=== PATIENT | male | born 1980 | race Caucasian/White ===

== ENCOUNTER 2018-09-09 19:01 | Emergency (ER) | payer MEDICAID ==
[~2018-09-09] VITALS: Ht 185.4 cm; Wt 103.0 kg
[~2018-09-09 19:01] MED LIST: LIDO20SO16 PO; METH4TAB3 PO; NAPR-56 PO; PENI250T2 PO
[2018-09-09] MEDS ORDERED: dexamethasone sod phosphate 10mg/ml inj IM STA (20:09)
[2018-09-09] MEDS ORDERED: HYDROcodone/acetaminophen 10/325mg tab PO ONE (20:10)
[2018-09-09] MEDS ORDERED: LIDOcaine Viscous 15ml cup MM PRN (20:10)
[2018-09-09] MEDS ORDERED: HYDR-4383 PO (20:11)
--- NOTE | 2018-09-09 20:11 | NUR ---
airway patent sore appearing and reddened throat
[2018-09-09] MEDS ORDERED: CefTRIAXone 1000mg IM Kit (w/lidocaine diluent) IM ONE (20:20)
[2018-09-09 20:33] VITALS: BP 135/69
== END 2018-09-09 20:37 | disposition home or self-care (01) ==
LOC: ER 19:01
DX: J02.0 Streptococcal pharyngitis (principal); J35.1 Hypertrophy of tonsils; Z79.899 Other long term (current) drug therapy
CPT/HCPCS: 96372; 99283; J0696; J1100

== ENCOUNTER 2020-04-03 10:51 | Emergency (ER) | payer MEDICAID ==
[~2020-04-03] VITALS: Ht 185.4 cm; Wt 90.9 kg
[~2020-04-03 10:51] MED LIST changes: +HYDR-4383 PO; -NAPR-56 PO; -PENI250T2 PO
[2020-04-03 12:27] VITALS: BP 132/92
[2020-04-03] MEDS ORDERED: PENI500T2 PO (12:40)
== END 2020-04-03 12:47 | disposition home or self-care (01) ==
LOC: ER 10:52
DX: K04.7 Periapical abscess without sinus (principal); F17.200 Nicotine dependence, unspecified, uncomplicated; Z79.2 Long term (current) use of antibiotics; Z79.899 Other long term (current) drug therapy
CPT/HCPCS: 99283

== ENCOUNTER 2020-04-04 10:59 | Emergency (ER) | payer MEDICAID ==
[~2020-04-04] VITALS: Ht 185.4 cm; Wt 91.5 kg
[~2020-04-04 10:59] MED LIST changes: +PENI500T2 PO
[2020-04-04 11:03] VITALS: BP 134/88
[2020-04-04] MEDS ORDERED: HYDROcodone/acetaminophen 10/325mg tab PO ONE (12:35)
== END 2020-04-04 13:20 | disposition home or self-care (01) ==
LOC: ER 11:00
DX: K04.7 Periapical abscess without sinus (principal)
CPT/HCPCS: 41800; 99284

== ENCOUNTER 2024-02-09 01:37 | Emergency (ER) | payer MEDICAID ==
[~2024-02-09] VITALS: Ht 185.4 cm; Wt 93.7 kg
[~2024-02-09 01:37] MED LIST changes: -PENI500T2 PO
[2024-02-09 01:41] VITALS: BP 122/80; PULSE 105; RESP 16; TEMP 98.8; O2SAT 98
[2024-02-09] MEDS ORDERED: SULF1TAB49 PO (20:40)
[2024-02-09] MEDS ORDERED: CEPH-585 PO (20:40)
== END 2024-02-09 03:49 | disposition left against medical advice (07) ==
LOC: ER 01:37
DX: L02.413 Cutaneous abscess of right upper limb (principal); Z53.21 Procedure and treatment not carried out due to patient leaving prior to being seen by health care provider

== ENCOUNTER 2024-02-09 20:15 | Emergency (ER) | payer MEDICAID ==
[~2024-02-09] VITALS: Ht 185.4 cm; Wt 90.9 kg
[2024-02-09 20:18] VITALS: BP 127/82; PULSE 98; O2SAT 97
[2024-02-09] MEDS ORDERED: SULF1TAB49 PO (20:40)
[2024-02-09] MEDS ORDERED: CEPH-585 PO (20:40)
[2024-02-09 20:56] VITALS: RESP 17; TEMP 98.4
== END 2024-02-09 20:51 | disposition home or self-care (01) ==
LOC: ER 20:15
DX: L03.113 Cellulitis of right upper limb (principal); Z79.899 Other long term (current) drug therapy
CPT/HCPCS: 99283; A6258